=== PATIENT | male | born 2000 | race Caucasian/White ===

== ENCOUNTER 2020-10-04 02:21 | Emergency (ER) | payer OTHER ==
[~2020-10-04] VITALS: Ht 177.8 cm; Wt 75.3 kg
[2020-10-04 02:23] VITALS: BP_SYST 113
[2020-10-04 02:43] VITALS: BP_SYST 113
== END 2020-10-04 02:43 ==
LOC: SED 02:21
DX: F10.129 Alcohol abuse with intoxication, unspecified (principal); V49.9XXA Car occupant (driver) (passenger) injured in unspecified traffic accident, initial encounter; Y93.89 Activity, other specified; Y92.89 Other specified places as the place of occurrence of the external cause; Y99.8 Other external cause status
CPT/HCPCS: 99283